=== PATIENT | female | born 1945 | race Caucasian/White ===

== ENCOUNTER 2021-08-03 08:48 | Emergency (ER) | payer MEDICARE, OTHER, SELFPAY ==
[2021-08-03 08:52] VITALS: BP 132/86; PULSE 70; RESP 16; TEMP 37.1; O2SAT 98; BMI 31.2
[2021-08-03 08:53] VITALS: BMI 31.2
--- NOTE | 2021-08-03 08:56 | CT_ITS ---
PROCEDURE INFORMATION: Exam: CT Head Without Contrast Exam date and time: 08/03/2021 8:56 AM Age: 76 years old Clinical indication: Injury or trauma; Concussion/head injury; Without loss of consciousness; Patient HX: Fall, hit back of head, right shoulder pain TECHNIQUE: Imaging protocol: Computed tomography of the head without contrast. Radiation optimization: All CT scans at this facility use at least one of these dose optimization techniques: automated exposure control; mA and/or kV adjustment per patient size (includes targeted exams where dose is matched to clinical indication); or iterative reconstruction. COMPARISON: No relevant prior studies available. FINDINGS: Brain: There is no acute intracranial hemorrhage or mass effect. Moderate diffuse volume loss is within the range of normal for patient age. There are small vessel ischemic changes within the periventricular and subcortical white matter, but the normal bledsoe-white matter delineation is maintained. Cerebral ventricles: Prominence of the ventricular system is commensurate with volume loss. The Paranasal sinuses: Visualized sinuses are unremarkable. No fluid levels. Mastoid air cells: Visualized mastoid air cells are well aerated. Bones/joints: Unremarkable. No acute fracture. Soft tissues: Unremarkable. IMPRESSION: No acute hemorrhage or calvarial fracture.
--- NOTE | 2021-08-03 08:56 | CT_ITS ---
PROCEDURE INFORMATION: Exam: CT Cervical Spine Without Contrast Exam date and time: 08/03/2021 8:56 AM Age: 76 years old Clinical indication: Neck pain; Patient HX: Fall, hit back of head, right shoulder pain TECHNIQUE: Imaging protocol: Computed tomography images of the cervical spine without contrast. Radiation optimization: All CT scans at this facility use at least one of these dose optimization techniques: automated exposure control; mA and/or kV adjustment per patient size (includes targeted exams where dose is matched to clinical indication); or iterative reconstruction. COMPARISON: CR XR CLAVICLE RT 08/03/2021 9:35 AM FINDINGS: Bones/joints: There is 2 mm of grade 1 retrolisthesis of C3 with respect to C4 and C4 with respect to C5. Normal vertebral body alignment is otherwise preserved. Vertebral body heights are within normal limits. Discs/Spinal canal/Neural foramina: There are severe degenerative changes at C1 and C2. There is severe multilevel intervertebral disc space loss from C2 to C7. There is multilevel facet hypertrophy. There is multilevel severe neural foraminal narrowing asymmetric to the left. Lungs: Lung apices are normal. Soft tissues: Unremarkable. IMPRESSION: No acute fracture. Chronic changes.
--- NOTE | 2021-08-03 08:56 | XR_ITS ---
PROCEDURE INFORMATION: Exam: XR Chest Exam date and time: 08/03/2021 8:56 AM Age: 76 years old Clinical indication: Right-sided; Patient HX: Fall, hit back of head, right shoulder pain TECHNIQUE: Imaging protocol: XR of the chest. Views: 1 view. COMPARISON: No relevant prior studies available. FINDINGS: Lungs: No acute airspace disease. Pleural spaces: No pleural effusion. Heart/Mediastinum: No cardiomegaly. Bones/joints: Osteopenia, degenerative change, and old rib fractures. Postoperative change in the incompletely visualized bilateral humeri and right elbow. IMPRESSION: No acute airspace or pleural disease .
--- NOTE | 2021-08-03 09:15 | XR_ITS ---
PROCEDURE INFORMATION: Exam: XR Right Shoulder Exam date and time: 08/03/2021 9:15 AM Age: 76 years old Clinical indication: Upper arm and shoulder; Prior surgery; Surgery date: 6+ months; Patient HX: Fall, hit back of head, right shoulder pain TECHNIQUE: Imaging protocol: XR Right shoulder. Views: 2 or more views. COMPARISON: None FINDINGS: Bones/joints: Osteopenia and degenerative change. Contour irregularity involving the proximal right humerus, suggesting remote trauma. Prosthesis and remodeling deformity in the incompletely visualized distal right humerus and elbow. Soft tissues: Soft tissue swelling. IMPRESSION: 1. Contour irregularity involving the proximal right humerus, suggesting remote trauma. 2. Additional findings as described above.
--- NOTE | 2021-08-03 09:15 | XR_ITS ---
PROCEDURE INFORMATION: Exam: XR Right Humerus Exam date and time: 08/03/2021 9:15 AM Age: 76 years old Clinical indication: Upper arm; Prior surgery; Surgery date: 6+ months; Patient HX: Fall, hit back of head, right shoulder pain TECHNIQUE: Imaging protocol: XR Right humerus. Views: 2 or more views. COMPARISON: None FINDINGS: Bones/joints: Osteopenia and degenerative change. 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 Correlation with baseline postoperative radiographs is recommended to assess interval stability. Soft tissues: Soft tissue swelling. 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 Correlation with baseline postoperative radiographs is recommended to assess interval stability.
--- NOTE | 2021-08-03 09:15 | XR_ITS ---
PROCEDURE INFORMATION: Exam: XR Right Elbow Exam date and time: 08/03/2021 9:15 AM Age: 76 years old Clinical indication: Elbow; Prior surgery; Surgery date: 6+ months; Patient HX: Fall, hit back of head, right shoulder pain TECHNIQUE: Imaging protocol: XR Right elbow. Views: 1 or 2 views. COMPARISON: No relevant prior studies available. FINDINGS: Bones/joints: Osteopenia. Right elbow prosthesis with extensive remodeling deformities and degenerative change, limiting evaluation. Correlation with baseline postoperative radiographs is recommended to assess interval stability. No gross evidence for acute bony injury. Soft tissues: Soft tissue swelling. IMPRESSION: 1. Right elbow prosthesis with extensive remodeling deformities and degenerative change, limiting evaluation. 2. Correlation with baseline postoperative radiographs is recommended to assess interval stability.
--- NOTE | 2021-08-03 09:15 | XR_ITS ---
PROCEDURE INFORMATION: Exam: XR Right Clavicle, Complete Exam date and time: 08/03/2021 9:15 AM Age: 76 years old Clinical indication: Upper arm and shoulder; Prior surgery; Surgery date: 6+ months; Patient HX: Fall, right shoulder/arm pain TECHNIQUE: Imaging protocol: XR Right clavicle complete. Views: Any number of views. COMPARISON: CR XR CHEST PORTABLE 08/03/2021 9:23 AM FINDINGS: Bones/joints: Incongruity in alignment of the acromioclavicular joint, without an acute fracture. Contour irregularity involving the proximal right humerus, suggesting remote trauma. Osteopenia and degenerative change. Soft tissues: Synovial hypertrophy about the acromioclavicular joint. IMPRESSION: Incongruity in alignment of the acromioclavicular joint, without an acute fracture.
--- NOTE | 2021-08-03 09:16 | ECG_ITS ---
APPROVED REPORT Exam: Resting ECG HR:61 bpm ECG Measurements Heart Rate 61 AXES [place] 128 P 26 QRSd 86 QRS -13 QT 420 T 31 QTc 422 Conclusion Normal sinus rhythm Minimal voltage criteria for LVH, may be normal variant Borderline ECG Electronically signed by : Cleveland Longoria MD 08/03/2021 21:04:42
[2021-08-03 09:24] VITALS: BP 145/80; PULSE 65; RESP 17; O2SAT 98
[2021-08-03 09:41] LABS: Basophils # 0.1 K/mm3 (0-0.2); Basophils % 0.5 % (0.1-2.0); Eosinophils # 0.3 K/mm3 (0.0-0.4); Eosinophils % 2.1 % (0.1-12.0); Hematocrit 36.1 % (37.0-47.0); Hemoglobin 12.4 g/dL (12.2-16.2); Lymphocytes % 7.8 % (10-50); Mean Corpuscular HGB Conc 34.4 g/dL (31.8-35.4); Mean Corpuscular Hemoglobin 31.3 pg (27.0-31.2); Mean Corpuscular Volume 91.1 fl (81-99); Mean Platelet Volume 7.4 fl (7.4-10.4); Monocytes # 0.4 K/mm3 (0.1-1.0); Monocytes % 3.3 % (1.7-9.3); Neutrophils # 10.8 K/mm3 (1.8-7.8); Neutrophils % 86.3 % (37.0-80.0); Platelet Count 539 K/mm3 (142-424); Red Blood Count 3.97 M/mm3 (4.20-5.40); White Blood Count 12.5 K/mm3 (4.8-10.8)
--- NOTE | 2021-08-03 09:43 | [facility].EDGENADL ---
ED Disposition Clinical Impression: Fall Qualifiers: Encounter type: initial encounter Qualified Code(s): W19.XXXA - Unspecified fall, initial encounter Disposition: Home, Self-Care Condition on Discharge: Good Instructions: How to Prevent Falls, DI for Shoulder Sprain, DI for Shoulder Pain Additional Instructions: Follow-up with your primary care physician within the next 1 to 3 days. Wear the sling for comfort, perform pendulum exercises 3 times daily to prevent frozen shoulder. Okay to take Tylenol, Motrin as needed for pain. Return ED with new, worsening, concerning symptoms. Referrals: Saeed Stark MD [Primary Care Provider] - - Critical Care Critical Care Time: No Attestation: On 08/03/21, the high probability of a clinically significant, sudden or life threatening deterioration of the following system(s) required my full and direct attention, intervention and personal management. The time I documented below is in addition to time spent performing reported procedures but includes the following listed in this critical care notation. Medical Decision Making - Medical Records Medical records reviewed: Yes: I reviewed the patient's medical records. - Jerry Inquiry Pt receiving controlled substance: No Vital Signs: 08/03/21 08:52 08/03/21 09:24 08/03/21 09:54 Temperature 98.7 F Temperature Source Oral Pulse Rate 65 62 Pulse Rate [Radial] 70 Respiratory Rate 16 17 18 Blood Pressure 145/80 H 140/85 Blood Pressure [Right Arm] 132/86 Blood Pressure Mean 112 Blood Pressure Mean [Right Arm] 101 Blood Pressure Position [Right Arm] Sitting 02 Sat by Pulse Oximetry 98 98 98 Oxygen Delivery Method Room Air 08/03/21 10:01 Temperature Temperature Source Pulse Rate 62 Pulse Rate [Radial] Respiratory Rate 18 Blood Pressure 144/73 H Blood Pressure [Right Arm] Blood Pressure Mean 102 Blood Pressure Mean [Right Arm] Blood Pressure Position [Right Arm] 02 Sat by Pulse Oximetry 98 Oxygen Delivery Method - Lab Data Lab Results 08/03/21 09:25: WBC 12.5 H, RBC 3.97 L, Hgb 12.4, Hct 36.1 L, MCV 91.1, MCH 31.3 H, MCHC 34.4, RDW 13.0, Plt Count 539 H, MPV 7.4, Neut % (Auto) 86.3 H, Lymph % (Auto) 7.8 L, [place] % (Auto) 3.3, Eos % (Auto) 2.1, Baso % (Auto) 0.5, Neut # (Auto) 10.8 H, Lymph # (Auto) 1.0, [place] # (Auto) 0.4, Eos # (Auto) 0.3, Baso # (Auto) 0.1, Total Counted 100, Neutrophils % (Manual) 90 H, Lymphocytes % (Manual) 6 L, Monocytes % (Manual) 3, Eosinophils % (Manual) 1, Platelet Estimate Normal, Hypochromasia 1+, Microcytosis 1+ 08/03/21 09:25: Sodium 132 L, Potassium 4.8, Chloride 97 L, Carbon Dioxide 24, Anion Gap 15.8 H, BUN 25 H, Creatinine 1.10 H, Estimated Creat Clear 51, Estimated GFR 49 L, Est GFR ( Amer) 59, Glucose 172 H, Calcium 9.7, Total Creatine Kinase 112, Troponin I < 0.01 08/03/21 10:13: Urine Color Yellow, Urine Appearance Clear, Urine pH 6.5, Ur Specific [place] 1.015, Urine Protein Negative, Urine Glucose (UA) Negative, Urine Ketones Negative, Urine Blood Negative, Urine Nitrate Negative, Urine Bilirubin Negative, Urine Urobilinogen 0.2, Ur Leukocyte Esterase Negative, Urine RBC Occasional, Urine WBC None, Ur Squamous Epith Cells None, Urine Bacteria Trace Result diagrams: 08/03/21 09:25 08/03/21 09:25 Orders (Tests/Meds): ED MEDICATIONS Discontinued Medications Generic Name Dose Route Start Last Admin Trade Name Lioq PRN Reason Stop Dose Admin Acetaminophen 500 mg 08/03/21 09:24 08/03/21 09:32 Acetaminophen 500mg Tab PO 08/03/21 09:25 500 mg ONCE ONE Administration Lactated Ringer's 1,000 mls @ 999 mls/hr 08/03/21 10:15 08/03/21 10:06 Lactated Ringer's 1000 Ml Bag IV 08/03/21 11:15 999 mls/hr .[id number] DANDY Administration ORDERS Category Date Time Status Troponin I Q3H Lab 08/03/21 12:00 Ordered Troponin I Q3H Lab 08/03/21 15:00 Ordered Urine Culture Stat Micro 08/03/21 10:13 Received - Radiology
[2021-08-03 09:44] LABS: Chloride 97 mmol/L (98-107); MANUAL DIFFERENTIAL MANUAL DIFFERENTIAL (MANUAL DIFF); Potassium 4.8 mmoL/L (3.5-5.1); Sodium 132 mmol/L (136-145)
[2021-08-03 09:47] LABS: Anion Gap 15.8 mEq/L (5-15); Blood Urea Nitrogen 25 mg/dl (7-17); Calcium 9.7 mg/dl (8.4-10.2); Carbon Dioxide 24 mmol/L (22.0-30.0); Creatine Kinase 112 U/L (30-135); Creatinine Clearance Estimated 51 mL/min (50-200); Estimated Glomerular Filt Rate 49 ml/min (>60); GFR (African American) 59 ML/MIN (>60); Glucose 172 mg/dl (74-100)
--- NOTE | 2021-08-03 09:49 | PC.NURSE ---
PT GONE TO CT
[2021-08-03 09:54] VITALS: BP 140/85; PULSE 62; RESP 18; O2SAT 98
[2021-08-03 10:01] VITALS: BP 144/73; PULSE 62; RESP 18; O2SAT 98
[2021-08-03 10:03] LABS: Troponin I < 0.01 ng/ml (0.00-0.034)
[2021-08-03 10:11] LABS: Eosinophils % 1 % (0-3); Lymphocytes % 6 % (10-50); Monocytes % 3 % (2-9); Neutrophils % 90 % (42-76); Platelet Estimate Normal; Total Cells Counted 100
[2021-08-03 10:12] LABS: Hypochromasia 1+; Microcytosis 1+
[2021-08-03 10:17] LABS: Microscopic, Urine URINE MICROSCOPIC (MICROSCOPIC)
[2021-08-03 10:20] LABS: Appearance,Urine CLEAR (Clear); Bilirubin,Urine Negative (Negative); Blood, Urine Negative (Negative); Color,Urine YELLOW (Yellow); Glucose,Urine (UA) Negative (Negative); Ketones,Urine Negative (Negative); Leukocyte Esterase,Urine Negative (Negative); Nitrate,Urine Negative (Negative); PH,Urine 6.5 (5.0-8.5); Protein,Urine Negative (Negative); Specific Gravity, Urine 1.015 (1.005-1.030); Urobilinogen,Urine 0.2 EU/dl (0.2)
[2021-08-03 10:33] LABS: Bacteria,Urine Trace /lpf; RBC,Urine Occasional #/hpf (0-3)
[2021-08-03 12:24] VITALS: BP 117/65; PULSE 78; RESP 16; TEMP 36.6; O2SAT 98
== END 2021-08-03 12:28 | disposition home or self-care (01) ==
PROVIDERS: Emergency Provider Emergency Medicine; PCP Family Medicine
DX: S50.01XA Contusion of right elbow, initial encounter (principal); S40.011A Contusion of right shoulder, initial encounter; S00.93XA Contusion of unspecified part of head, initial encounter; W01.0XXA Fall on same level from slipping, tripping and stumbling without subsequent striking against object, initial encounter; Y92.019 Unspecified place in single-family (private) house as the place of occurrence of the external cause
CPT/HCPCS: 70450; 71045; 72125; 73000; 73030; 73060; 73070; 80048; 81001; 82550; 84484; 85007; 85025; 87086; 93005; 96365; 96375; 99284